=== PATIENT | female | born 1990 | race Caucasian/White ===

== ENCOUNTER → 2018-03-14 | Outpatient (CLI) | payer BC ==
[~2018-03-14] MED LIST: CEPH500C24 PO; HYDR-4309 PO; PROM-110 PO
--- NOTE | 2018-03-14 08:17 | RADIOLOGY IMAGING REPORT ---
FACILITY: [facility] PATIENT NAME: Elizabeth Barrett : 1990 MR: [id number] V: [id number] EXAM DATE: ORDERING PHYSICIAN: KAITLIN JARVIS TECHNOLOGIST: Location: [facility] [place] Patient: Elizabeth Barrett : 1990 Visit/Account:[id number] Date of Sevice: 03/14/2018 GALLBLADDER HISTORY: Epigastric pain COMPARISON: None. FINDINGS: Gallbladder: No stones. No wall thickening. No pericholecystic fluid Liver: 17 cm. No focal liver lesions. Common duct: Normal, 2.3 mm diameter. Pancreas: Normal where visualized Right kidney: 10.3 x 4.5 x 6.3 cm. No hydronephrosis. No cortical mass lesions Upper abdominal aorta and IVC: Patent. Ascites: None visualized. IMPRESSION: 1. Negative ultrasound. Specifically, no cholelithiasis or cholecystitis change. Report Dictated By: Connor Britton MD at 03/14/2018 8:12 AM Report E-Signed By: Connor Britton MD at 03/14/2018 8:14 AM WSN:[id number]
== END ==
LOC: US 06:53
PROVIDERS: ATTEND Obstetrics & Gynecology
DX: R10.13 Epigastric pain (principal)
CPT/HCPCS: 76705